=== PATIENT | male | born 1960 | race Caucasian/White ===

== ENCOUNTER → 2021-12-19 15:32 | Outpatient (BNVA) | payer MEDICARE, MEDICAID, SELFPAY | PROVIDERS: Family Provider Family Medicine; PCP Family Medicine; Referring Provider Family Medicine; Visit Provider Physician Assistant | DX: S42.002A Fracture of unspecified part of left clavicle, initial encounter for closed fracture (principal); V28.9XXA Unspecified motorcycle rider injured in noncollision transport accident in traffic accident, initial encounter | CPT/HCPCS: 73000; 99203; 99204 ==

== ENCOUNTER 2021-12-22 06:50 | Day surgery (SDC) | payer MEDICARE, MEDICAID, SELFPAY ==
[2021-12-22] VITALS (13 sets, daily range): BP systolic 147–183; BP diastolic 79–96; PULSE 78–100; RESP 16–25; TEMP 36.6–36.8; O2SAT 90–99
--- NOTE | 2021-12-22 | XR_ITS ---
WS: [id number] Exam: [place] [id number] Date/Time of Exam: 12/22/2021 12:00 AM Reason For Exam: orif left clavicle 2 anterior posterior intraoperative C-arm images of the left clavicle are submitted for evaluation. The final image depicts plate and screw fixation involving a midshaft fracture. The fracture is now i n satisfactory position for healing. XR/[place] [address] IMPRESSION: 1. Satisfactory internal orthopedic fixation involving a midshaft fracture of t he left clavicle.
--- NOTE | 2021-12-22 | SCC_ITS ---
Procedure done: Open reduction internal fixation of left clavicle 10.8 seconds of fluoroscopic guidance, for a cumulative dose of 1.36 mGy, was provided to Dr. Malhotra by the radiology department. C-arm images of the left clavicle were saved for the patient's permanent record. [facility]
--- NOTE | 2021-12-22 07:22 | P.ANESASSM_ITS ---
Pre-Anesthetic Assessment Height/Weight: Height 1.74 m Weight 91.626 kg Preop Diagnosis: Left displaced clavicle shaft fracture Operation Date: 12/22/21 08:45 Proposed Procedures p ORIF Left Clavicle 99193,S42.002A(Left) - Khoi Malhotra DO Familial anesthetic complications: none Was Beta Darrius taken within 24 hours: N/A Was Clonidine taken within 24 hours: N/A Social No alcohol and No tobacco Exam alert, oriented x 3, clear to auscultation bilaterally and regular rate & rhythm Airway Submandibular: within normal limits Cervical ROM: within normal limits Mallampati: Class II Dentition: full GI Gastroesophageal Reflux [place] [facility] [place] Osteoarthritis/DJD Anesthetic Plan ASA status: 2 Anesthesia: General Medications/Allergies Home Medications Medication Instructions Recorded Confirmed Last Taken Type hydrocodone 5 mg-acetaminophen 300 1 tab PO Q6H PRN Pain 12/19/21 12/22/21 Unknown History mg tablet hydrocodone 7.5 mg-acetaminophen 1 tab PO Q4H PRN pain 5 days #30 12/19/21 12/22/21 Unknown Rx 325 mg tablet tabs diclofenac sodium 75 mg 75 mg PO DAILY 12/21/21 12/22/21 Unknown History tablet,delayed release gabapentin 100 mg capsule 100 mg PO DAILY 12/21/21 12/22/21 Unknown History omeprazole 40 mg capsule,delayed 40 mg PO DAILY 12/21/21 12/22/21 Unknown History release Allergies Allergy/AdvReac Type Severity Reaction Status Date / Time No Known Allergies Allergy Unverified 12/19/21 13:05 [facility] Anesthesia Social History (Updated 12/19/21 @ 15:49 by Myriam Thomson LPN) Smoking and tobacco status: former smoker Second hand smoke exposure: No Smoking risk assessment/counseling performed?: No Alcohol intake: never Desire information about alcohol rehabilitation?: No Counseling given: No Desire information about substance/drug rehabilitation?: No Counseling given: No Adopted: No Caregiver/support person: No Lives independently: Yes Housing: Other Number of children: 4 Number of grandchildren: 11 Highest education level completed: GED or Equivalent service: No Current occupational status: disabled Current occupational exposures/hazards: No Pets and animals: Yes History of recent travel: No Current gender identity: Male Special nazia needs: No Agree to transfusion: Yes Data Anesthesia Cardiac Studies: No Data to Display
[2021-12-22] MEDS: sodium chloride 0.9% 1,000 ML 30 ML IV (07:38)
--- NOTE | 2021-12-22 08:16 | W.PM.OPSUD ---
Surgery/Procedure H&P Update DATE OF PROCEDURE: December 22, 2021 DATE H&P PERFORMED: 12/19/21 H&P UPDATE INFORMATION: I have reviewed H&P completed within last 30 days, I have examined patient prior to procedure and No changes to prior documentation PREOP DIAGNOSIS: Left displaced clavicle shaft fracture PLANNED PROCEDURE: Operation Date: 12/22/21 08:45 Proposed Procedures p ORIF Left Clavicle 50227,S42.002A(Left) - Khoi Malhotra DO
[2021-12-22] MEDS: ceFAZolin 2,000 MG in sodium chloride 0.9% (plus) 50 ML 100 MG IV (08:28)
[2021-12-22] MEDS: HYDROmorphone 1 mg/mL INJ 1 mL 0.5 MG IVP (09:40)
--- NOTE | 2021-12-22 09:40 | PM.OP ---
Operative Report Date of procedure: December 22, 2021 Pre-op diagnosis: Preop Diagnosis Left displaced clavicle shaft fracture Post-op diagnosis: same Procedure done: Open reduction internal fixation of left clavicle Surgeon: Khoi Malhotra Estimated blood loss (mL): 20 Procedure: Open reduction internal fixation of left clavicle Patient was brought to the operative suite after undergoing anesthesia was placed in the supine position on the operating room table. Patient was then prepped and draped in normal sterile fashion. Skin incision was made directly over the clavicle. Bovie was used to cut down to the bone fracture was identified reduced with a [id number] reduction forceps. A lag screw was placed from anterior to posterior. And then a superior plate was placed on the top of the clavicle this was a Rosita plate. 3 screws were placed proximally fracture 3 screws were placed distal fracture AP and lateral fluoroscopy ensured that the fracture and hardware in proper position. Wounds were irrigated and closed with Vicryl and severino. Sterile dressings were applied and patient was transferred to the PACU in stable condition.
--- NOTE | 2021-12-22 09:46 | PC.NURSE ---
dilaudid given to pt as first line drug for pain in pacu as directed by anesthesia staff
[2021-12-22] MEDS: HYDROcodone-acetaminophen 5-325 mg Tablet 1 TAB PO (10:48)
--- NOTE | 2021-12-22 14:12 | ANE.PACU2 ---
Inpatient post-anesthesia follow up: Airway intact: Yes Vital signs: Temperature 97.9 F Pulse Rate 96 Respiratory Rate 18 Blood Pressure 159/92 Pulse Oximetry 92 Oxygen Delivery Me thod Nasal Cannula Oxygen Flow Rate 4 Fraction of Inspir ed Oxygen Hydration adequate: Yes Nausea and vomiting: No Pain level: 3 Mental status: Baseline
== END 2021-12-22 14:10 | disposition home or self-care (01) ==
PROVIDERS: PCP Family Medicine; Visit Provider Orthopaedic Surgery
PROC: (CPT 23515; principal; 2021-12-22 08:35)
DX: S42.002A Fracture of unspecified part of left clavicle, initial encounter for closed fracture (principal); V29.9XXA Motorcycle rider (driver) (passenger) injured in unspecified traffic accident, initial encounter; K21.9 Gastro-esophageal reflux disease without esophagitis; M19.90 Unspecified osteoarthritis, unspecified site; Z87.891 Personal history of nicotine dependence
CPT/HCPCS: 23515; 73000; 76000; C1713; J0330; J1100; J1170; J2250; J2405; J2704; J2710; J3010; J3490; J7030

== ENCOUNTER → 2022-01-11 10:36 | Outpatient (BNVA) | payer MEDICARE, MEDICAID, SELFPAY | PROVIDERS: PCP Family Medicine; Visit Provider Orthopaedic Surgery | DX: S42.023D Displaced fracture of shaft of unspecified clavicle, subsequent encounter for fracture with routine healing (principal); X58.XXXD Exposure to other specified factors, subsequent encounter | CPT/HCPCS: 99024 ==

== ENCOUNTER → 2022-02-01 10:44 | Outpatient (BNVA) | payer MEDICARE, MEDICAID, SELFPAY | PROVIDERS: PCP Family Medicine; Visit Provider Orthopaedic Surgery | DX: S42.022D Displaced fracture of shaft of left clavicle, subsequent encounter for fracture with routine healing (principal); X58.XXXD Exposure to other specified factors, subsequent encounter | CPT/HCPCS: 73000; 99024 ==

== ENCOUNTER → 2022-03-13 10:32 | Outpatient (BNVA) | payer MEDICARE, MEDICAID, SELFPAY | PROVIDERS: PCP Family Medicine; Visit Provider Orthopaedic Surgery | DX: S42.023D Displaced fracture of shaft of unspecified clavicle, subsequent encounter for fracture with routine healing (principal); X58.XXXD Exposure to other specified factors, subsequent encounter; M19.112 Post-traumatic osteoarthritis, left shoulder | CPT/HCPCS: 73000; 99024 ==

== ENCOUNTER → 2022-03-23 10:44 | Outpatient (BNVA) | payer MEDICARE, MEDICAID, SELFPAY | PROVIDERS: PCP Family Medicine; Visit Provider Student in an Organized Health Care Education/Training Program | DX: M19.012 Primary osteoarthritis, left shoulder (principal); M75.42 Impingement syndrome of left shoulder | CPT/HCPCS: 20610; 73000; 99204; J3301 ==

== ENCOUNTER → 2022-04-30 13:44 | Outpatient (BNVA) | payer MEDICARE, MEDICAID, SELFPAY | PROVIDERS: PCP Family Medicine; Visit Provider Student in an Organized Health Care Education/Training Program | DX: M19.012 Primary osteoarthritis, left shoulder (principal); M75.42 Impingement syndrome of left shoulder | CPT/HCPCS: 99213 ==